=== PATIENT | female | born 1970 | race Caucasian/White ===

== ENCOUNTER 2020-06-21 09:58 | Outpatient (CLI) | payer BC, SELFPAY ==
--- NOTE | 2020-06-21 11:00 | NEURO_ITS ---
Patient Number: [id number] Impression: # Complains of left upper extremity pain particularly around shoulder. # No Carpal Tunnel Syndrome. # Left ulnar neuropathy across the elbow. # Normal needle/EMG exam including Bicep, Triceps and Deltoid muscles but ADM is neurogenic. # Patient has ulnar to median cross innervation above the wrist and below the elbow. Nerve Conduction Studies Anti Sensory Summary Table Stim Site NR Peak (ms) P-T Amp (?V) Site1 Site2 Delta-P (ms) Dist (cm) Gennaro (m/s) Left Median Anti Sensory (2-3nd Digit) Wrist 2.6 67.0 Wrist 2-3nd Digit 2.6 14.0 54 Wrist 2.6 83.4 Wrist 2-3nd Digit 2.6 14.0 54 Left Radial Anti Sensory (Base 1st Digit) Wrist 3.0 14.9 Wrist Base 1st Digit 3.0 0.0 Left Ulnar Anti Sensory (5th Digit) Wrist 2.3 88.2 Wrist 5th Digit 2.3 14.0 61 Motor Summary Table Stim Site NR Onset (ms) O-P Amp (mV) Site1 Site2 Delta-0 (ms) Dist (cm) Gennaro (m/s) Left Median Motor Run #1 (Abd Poll Brev) Wrist 3.1 4.7 Elbow Wrist 5.1 26.0 51 Elbow 8.2 0.1 Left Median Motor Run #2 (Abd Poll Brev) Wrist 3.0 1.3 Elbow Wrist 4.8 29.0 60 Elbow 7.8 1.2 Left Ulnar Motor (Abd Dig Minimi) Wrist 2.9 4.8 A Elbow Wrist 5.5 29.0 53 A Elbow 8.4 3.3 B Elbow Wrist 3.2 20.0 63 B Elbow 6.1 3.2 F Wave Studies NR F-Lat (ms) L-R F-Lat (ms) Left Median (Mrkrs) (Abd Poll Brev) 25.78 Left Ulnar (Mrkrs) (Abd Dig Min) 27.70 EMG Side Muscle Nerve Root Ins Act Fibs Amp Dur Recrt Comment Left 1stDorInt Ulnar C8-T1 Nml Nml Nml Nml Nml Left Ext Indicis Radial (Post Int) C7-8 Nml Nml Nml Nml Nml Left Ext Digitorum Radial (Post Int) C7-8 Nml Nml Nml Nml Nml Left BrachioRad Radial C5-6 Nml Nml Nml Nml Nml Left PronatorTeres Median C6-7 Nml Nml Nml Nml Nml Left Abd Poll Brev Median C8-T1 Nml Nml Nml Nml Nml Left ABD Dig Min Ulnar C8-T1 Nml Nml Incr >12ms Nml Left Biceps Musculocut C5-6 Nml Nml Nml Nml Nml Left Triceps Radial C6-7-8 Nml Nml Nml Nml Nml Left Deltoid Axillary C5-6 Nml Nml Nml Nml Nml MTDD
== END 2020-06-21 09:59 | disposition home or self-care (01) ==
PROVIDERS: PCP Family Medicine Adolescent Medicine; Visit Provider Physician Assistant
DX: R20.2 Paresthesia of skin (principal); G56.22 Lesion of ulnar nerve, left upper limb
CPT/HCPCS: 95886; 95909

== ENCOUNTER → 2020-07-22 10:54 | Outpatient (CLI) | payer BC, SELFPAY ==
--- NOTE | ~2020-07-22 | MR_ITS ---
EXAMINATION: MR cervical spine wo con EXAM DATE: 07/22/2020 11:27 INDICATION: Left neck, shoulder paresthesia. Numbness. TECHNIQUE: Multi-sequential, multiplanar MR images of the cervical spine were obtained without contra st. Axial T2, axial T2 MERGE sequence. Sagittal T1, T2, T2 fat saturation images also obtained. Th ere is no prior study for comparison. FINDINGS: Mildly increased spinal cord signal posterior to the C5-6 level, with mild flattening of t he cord, but no expansion. Appearance is most consistent with small amount of myelomalacia from chron ic cord compression. There is moderate disc disease C5-6, mild to moderate C4-5 and C6-7. Cervicomed ullary junction is normal in appearance. The vertebral bodies are aligned in the AP dimension. There are no suspicious marrow signal abnormalities. Paraspinal soft tissue is unremarkable. Left thyroid c ystic nodule. Level by level evaluation: C2-C3: Disc does not extend beyond the endplate margin. Uncovertebral joint arthropathy: None. Facet joint arthropathy: Mild bilateral. Neural foraminal stenosis: No stenosis. Central canal stenosis: No stenosis. C3-C4: Disc does not extend beyond the endplate margin. Uncovertebral joint arthropathy: None. Facet joint arthropathy: Mild bilateral. Neural foraminal stenosis: Mild bilateral. Central canal stenosis: No stenosis. C4-C5: Disc does not extend beyond the endplate margin. Uncovertebral joint arthropathy: Mild bilateral. Facet joint arthropathy: Mild bilateral. Neural foraminal stenosis: No stenosis. Central canal stenosis: No stenosis. C5-C6: There is a mild to moderate diffuse disc bulge. Uncovertebral joint arthropathy: Moderate to severe bilateral. Facet joint arthropathy: Mild to moderate bilateral. Neural foraminal stenosis: Moderate to severe bilateral. Central canal stenosis: Mild to moderate . Central canal measures 6 mm in mid sagittal AP diameter . C6-C7: There is a mild to moderate diffuse disc bulge. Uncovertebral joint arthropathy: Moderate bilateral. Facet joint arthropathy: Mild bilateral. Neural foraminal stenosis: Moderate to severe left. Mild to moderate right Central canal stenosis: Mild to moderate . Central canal measures 7 mm in mid sagittal AP diameter . C7-T1: Disc does not extend beyond the endplate margin. Uncovertebral joint arthropathy: Mild to moderate left. Facet joint arthropathy: Mild to moderate left, mild right. Neural foraminal stenosis: No stenosis. Central canal stenosis: No stenosis. IMPRESSION: 1. C5-6 mild to moderate central canal stenosis, some flattening of spinal cord and increased cord s ignal without expansion, appearance most consistent with chronic cord compression. 2. Significant neural foraminal stenosis bilaterally at C5-6 and on the left at C6-7. Reviewed, dictated and finalized at location B. IMPRESSION: 1. C5-6 mild to moderate central canal stenosis, some flattening of spinal cor d and increased cord signal without expansion, appearance most consistent with chronic cord compression. 2. Significant neural foraminal stenosis bilaterally at C5-6 and on the left a t C6-7.
== END ==
PROVIDERS: PCP Family Medicine Adolescent Medicine; Visit Provider Family Medicine Adolescent Medicine
DX: M62.81 Muscle weakness (generalized) (principal); R20.2 Paresthesia of skin
CPT/HCPCS: 72141

== ENCOUNTER → 2020-08-26 11:22 | Outpatient (CLI) | payer BC, SELFPAY ==
--- NOTE | ~2020-08-26 | MM_ITS ---
EXAMINATION: MM screening [facility] BI w laura HISTORY: Screening mammogram TECHNIQUE: Craniocaudal and mediolateral oblique 3-D tomosynthesis images were obtained and synthetic 2-D images were generated. CAD analysis was submitted and interpreted. COMPARISON: 08/12/2019, , 09/03/2016 bilateral digital screening mammogram examinations BREAST PARENCHYMAL COMPOSITION: There are scattered areas of fibroglandular density. FINDINGS: There is a subtle group of clustered microcalcifications in the outer mid right breast post eriorly. Diagnostic right mammogram and magnification views is recommended. Otherwise there is no evidence of suspicious mass, calcification, or architectural distortion to sugg est malignancy in either breast. There has been no suspicious interval change. IMPRESSION: 1. Clustered microcalcifications in posterior lateral mid right breast 2. Diagnostic right mammogram with magnification views is recommended. BI-RADS Category 0: Incomplete: Needs additional imaging evaluation. Reviewed, dictated and finalized at location A.
== END ==
PROVIDERS: Visit Provider Obstetrics & Gynecology Gynecology
DX: Z12.31 Encounter for screening mammogram for malignant neoplasm of breast (principal)
CPT/HCPCS: 77063; 77067

== ENCOUNTER → 2020-10-20 09:22 | Outpatient (CLI) | payer BC, SELFPAY ==
--- NOTE | ~2020-10-20 | MM_ITS ---
EXAMINATION: MM diagnostic mammo unilat RT HISTORY: Indeterminate right breast calcifications on screening mammogram TECHNIQUE: Additional images of the right breast were performed. CAD analysis was submitted and inter preted. COMPARISON: 08/26/2020,02/09/2019, 01/13/2018, 09/03/2016 FINDINGS: There are grouped calcifications in the posterior third of the upper outer quadrant of the breast at the 10:00 location 10 cm from the nipple which appear to be pleomorphic and amorphous in mo rphology. IMPRESSION: 1. Suspicious right breast calcifications. 2. Stereotactic biopsy is recommended. BI-RADS category 4, suspicious findings. Reviewed, dictated and finalized at location A. ODIAL OPERATIONS MANAGER
== END ==
PROVIDERS: Visit Provider Obstetrics & Gynecology Gynecology
DX: R92.8 Other abnormal and inconclusive findings on diagnostic imaging of breast (principal)
CPT/HCPCS: 77065

== ENCOUNTER 2020-10-24 15:07 | Outpatient (CLI) | payer BC, SELFPAY ==
--- NOTE | ~2020-10-24 | XR_ITS ---
EXAMINATION:XR_[id number]_CR DATE: 10/24/2020 15:34 INDICATION: Status post cervical spinal fusion TECHNIQUE: AP, lateral, lateral swimmers and odontoid views of the cervical spine are provided. COMPARISON: None FINDINGS: Anterior spinal fusion at C5-C7 with anterior plate and screw fixation. There is persistent lucency w ith bone graft cages at both of the disc spaces. Slight reversal of the normal cervical lordosis in t he cervical spine above the level of the fusion. Vertebral body heights are normal. Unfused disc heig hts are normal. Mild uncovertebral osteoarthritis bilaterally at C2-C3, C3-C4 and C4-C5. Moderate fac et osteoarthritis at C7-T1. Mild facet osteoarthritis in the more cephalad cervical spine. Odontoid i s intact. Normal atlantoaxial interval. Prevertebral soft tissues are normal. Visualized portions o f the upper lung zones are clear. IMPRESSION: 1. Mild cervical spondylosis with instrumented C5-C7 anterior spinal fusion. Reviewed, dictated and finalized at location . C LIBRARY ASSISTANT
== END 2020-10-24 15:08 | disposition home or self-care (01) ==
LOC: ANHIMG 15:16
PROVIDERS: PCP Family Medicine Adolescent Medicine; Visit Provider Neurological Surgery
DX: Z98.1 Arthrodesis status (principal); M47.813 Spondylosis without myelopathy or radiculopathy, cervicothoracic region
CPT/HCPCS: 72040

== ENCOUNTER 2020-11-01 11:11 | Outpatient (CLI) | payer BC, SELFPAY ==
--- NOTE | ~2020-11-01 | MM_ITS ---
EXAMINATION: MM stereotactic bx RT, MM post biopsy diagnostic RT, MM stereotactic specimen RT, Specim en Radiograph, Tissue Marker Clip Placement, Unilateral Mammogram DATE: 11/01/2020 13:14 (accession [id number]), 11/01/2020 13:16 (accession [id number]), 11/01 13:16 (accession [id number]) INDICATION: Abnormal mammogram: Suspicious right grouped microcalcifications in posterior third of up per outer right breast at 10:00 10 cm from nipple, reported on 10/20/2020 diagnostic right digital ma mmogram. TECHNIQUE AND FINDINGS: The risks and potential benefits of the procedure and alternatives were discussed with the patient an d written informed consent was obtained. Timeout procedure was performed. The patient was placed in t he prone position on the dedicated stereotactic table with the right breast in lateral medial dominga malinda, and the area of interest was localized and targeted utilizing digital imaging with stereotaxis. After sterile preparation of the skin, 1% lidocaine was utilized for local anesthesia at the skin pun cture site and 1% lidocaine with epinephrine was utilized for deeper local anesthesia/is about the bi opsy site. A 9G eCoast vacuum assisted biopsy needle was advanced to the level of the calcification o f interest from a lateral approach utilizing stereotactic guidance and a total of 30 tissue core biop sies were obtained from 3 different collections, including 2 additional collections of tissue after t he initial sampling. Multiple specimen radiographs from three separate biopsy samplings demonstrate that at least one of t he calcifications of interest is included within the tissue cores. A tissue marker clip was then madi claudia at the biopsy site. A digital mammographic exposure confirmed the successful deployment of the b iopsy marker. No microcalcifications of interest are definitely identified within the postbiopsy diag nostic mammogram. However, there is some increased density consistent with post biopsy hematoma which might obscure subtle microcalcifications. 6 month diagnostic right mammogram follow-up is therefore recommended. The needle was removed and hemostasis was achieved. A sterile bandage was applied. The patient tole rated the procedure well and there is no evidence of significant immediate complication, other than s ome bleeding . The patient was given verbal as well as written postprocedural instructions prior to discharge from the department. Tissue cores were submitted to surgical pathology for histologic anal ysis. A 2-view right unilateral digital mammogram was obtained post procedure, demonstrating the tissue mar ker clip in expected position. IMPRESSION: 1. Stereotactic biopsy of upper outer quadrant, followed by tissue marker clip placement. Please re danielle to pathology report for histologic analysis. 2. The biopsy yielded only one definitive calcification in the specimens, but no definite residual mi crocalcifications are evident on the post biopsy mammogram. Follow-up diagnostic right mammogram is r ecommended in 6 months. RECOMMENDATION: 6 month diagnostic right mammogram follow up Dr. Coelho telephoned the results and the 6 month diagnostic right mammogram follow up recommendation t o Dr. Marrufo on 11/01/2020 at 1538 hours. Reviewed, dictated and finalized at Location A. Reviewed, dictated and finalized at location A. MACHINE OPERATOR IMPRESSION: 1. Stereotactic biopsy of upper outer quadrant, followed by tissue marker clip placement. Please refer to pathology report for histologic analysis. 2. The biopsy yielded only one definitive calcification in the specimens, but n o definite residual microcalcifications are evident on the post biopsy mammogra m. Follow-up diagnostic right mammogram
== END 2020-11-01 11:12 | disposition home or self-care (01) ==
PROVIDERS: PCP Family Medicine Adolescent Medicine; Visit Provider Surgery
DX: N60.11 Diffuse cystic mastopathy of right breast (principal)
CPT/HCPCS: 19081; 77065; 88305; A4648

== ENCOUNTER → 2021-03-23 06:52 | Outpatient (CLI) | payer BC, SELFPAY ==
[2021-03-24 21:01] LABS: SARS-CoV-2 RNA PCR Positive
== END ==
PROVIDERS: PCP Family Medicine Adolescent Medicine; Visit Provider Family Medicine Adolescent Medicine
DX: U07.1 COVID-19 (principal)
CPT/HCPCS: C9803; U0003; U0005

== ENCOUNTER → 2021-07-17 08:57 | Outpatient (CLI) | payer BC, SELFPAY ==
--- NOTE | ~2021-07-17 | MM_ITS ---
EXAMINATION: MM diagnostic stacy RT w laura HISTORY: Six-month follow-up from benign right breast biopsy TECHNIQUE: Craniocaudal, mediolateral, and mediolateral oblique 3-D tomosynthesis images of the right breast were performed and synthetic 2-D images were generated. CAD analysis was submitted and interp reted. COMPARISON: 10/20/2020,08/26/2020, 02/09/2019 BREAST PARENCHYMAL COMPOSITION: There are scattered areas of fibroglandular density. FINDINGS: There are changes of interval stereotactic biopsy in the right breast. There is no evidence of suspicious mass, calcification, or architectural distortion to suggest malignancy. Stable right breast masses are considered benign given the lack of interval change. IMPRESSION: 1. No mammographic evidence of malignancy. 2. Recommend routine screening mammography. Of note, patient is due for screening of the left breast next month. BI-RADS Category 2: Benign finding(s). Reviewed, dictated and finalized at location A. IMPRESSION: 1. No mammographic evidence of malignancy. 2. Recommend routine screening mammography. Of note, patient is due for screeni ng of the left breast next month. BI-RADS Category 2: Benign finding(s).
== END ==
PROVIDERS: Visit Provider Obstetrics & Gynecology
DX: R92.8 Other abnormal and inconclusive findings on diagnostic imaging of breast (principal)
CPT/HCPCS: 77061; 77065; G0279

== ENCOUNTER → 2022-01-09 13:24 | Outpatient (CLI) | payer BC, SELFPAY ==
--- NOTE | ~2022-01-09 | MM_ITS ---
EXAMINATION: MM screening [facility] BI w laura HISTORY: Screening TECHNIQUE: Craniocaudal and mediolateral oblique 3-D tomosynthesis images were obtained and synthetic 2-D images were generated. CAD analysis was submitted and interpreted. COMPARISON: Comparison to multiple prior studies sequentially, with oldest reviewed study dated 08/26. BREAST PARENCHYMAL COMPOSITION: There are scattered areas of fibroglandular density. FINDINGS: There is no evidence of suspicious mass, calcification, or architectural distortion to sugg est malignancy in either breast. There has been no suspicious interval change. IMPRESSION: 1. No mammographic evidence of malignancy. 2. Recommend routine screening mammography in one year. BI-RADS Category 1: Negative .. Reviewed, dictated and finalized at location A. HING OPERATOR
== END ==
PROVIDERS: Visit Provider Nurse Practitioner
DX: Z12.31 Encounter for screening mammogram for malignant neoplasm of breast (principal)
CPT/HCPCS: 77063; 77067

== ENCOUNTER → 2023-01-31 15:14 | Outpatient (CLI) | payer BC, SELFPAY ==
--- NOTE | ~2023-01-31 | MM_ITS ---
EXAMINATION: MM screening [facility] BI w laura HISTORY: Screening mammogram TECHNIQUE: Craniocaudal and mediolateral oblique 3-D tomosynthesis images were obtained and synthetic 2-D images were generated. CAD analysis was submitted and interpreted. COMPARISON: January 2022, July 17, 2021, October 20, 2020 bilateral screening mammogram examinati ons BREAST PARENCHYMAL COMPOSITION: There are scattered areas of fibroglandular density. FINDINGS: Right breast: There is no evidence of suspicious mass, calcification, or architectural distortion to suggest malignancy in the right breast. There has been no suspicious interval change. Left breast: Focal asymmetry is noted in the mid to posterior aspect of the inner aspect of the outer left breast on craniocaudal view. Diagnostic left mammogram is recommended, with ultrasound if requi red. IMPRESSION: 1. Left mammographic asymmetry 2. Diagnostic left mammogram is recommended, with ultrasound if required BI-RADS Category 0: Incomplete: Needs additional imaging evaluation. Reviewed, dictated and finalized at location A. AND SEAT COVER FITTER
== END ==
PROVIDERS: PCP Advanced Practice Midwife; Visit Provider Advanced Practice Midwife
DX: Z12.31 Encounter for screening mammogram for malignant neoplasm of breast (principal); R92.8 Other abnormal and inconclusive findings on diagnostic imaging of breast
CPT/HCPCS: 77063; 77067

== ENCOUNTER → 2023-04-12 14:00 | Outpatient (CLI) | payer BC, SELFPAY ==
--- NOTE | ~2023-04-12 | MM_ITS ---
EXAMINATION: MM diagnostic stacy LT w laura HISTORY: Left breast asymmetry on screening mammogram TECHNIQUE: Additional 3-D tomosynthesis images of the left breast were performed and synthetic 2-D im ages were generated. CAD analysis was submitted and interpreted. COMPARISON: 01/31/2023,01/09/2022, 08/26/2020 BREAST PARENCHYMAL COMPOSITION: There are scattered areas of fibroglandular density. FINDINGS: There is a return to baseline fibroglandular appearance with spot compression of the left b reast in the area questioned on screening mammogram. IMPRESSION: 1. No mammographic evidence of malignancy. 2. Recommend routine screening mammography in one year. BI-RADS Category 1: Negative Reviewed, dictated and finalized at location A.
== END ==
PROVIDERS: PCP Obstetrics & Gynecology Gynecology; Visit Provider Obstetrics & Gynecology Gynecology
DX: R92.8 Other abnormal and inconclusive findings on diagnostic imaging of breast (principal)
CPT/HCPCS: 77061; 77065; G0279

== ENCOUNTER 2024-05-21 13:52 | Outpatient (CLI) | payer BC, SELFPAY ==
--- NOTE | ~2024-05-21 | MM_ITS ---
EXAMINATION: MM screening [facility] BI w laura HISTORY: Screening TECHNIQUE: Craniocaudal and mediolateral oblique 3-D tomosynthesis images were obtained and synthetic 2-D images were generated. CAD analysis was submitted and interpreted. COMPARISON: Comparison to multiple prior studies sequentially, with oldest reviewed study dated 12/2019. BREAST PARENCHYMAL COMPOSITION: Not dense: There are scattered areas of fibroglandular density. FINDINGS: There is no evidence of suspicious mass, calcification, or architectural distortion to sugg est malignancy in either breast. There has been no suspicious interval change. IMPRESSION: 1. No mammographic evidence of malignancy. 2. Recommend routine screening mammography in one year. BI-RADS Category 1: Negative Reviewed, dictated and finalized at location B.
== END 2024-05-21 13:53 ==
PROVIDERS: PCP Family Medicine Adolescent Medicine; Visit Provider Obstetrics & Gynecology Gynecology
DX: Z12.31 Encounter for screening mammogram for malignant neoplasm of breast (principal)
CPT/HCPCS: 77063; 77067

== ENCOUNTER 2025-08-06 12:47 | Outpatient (CLI) | payer BC, SELFPAY ==
--- NOTE | ~2025-08-06 | MM_ITS ---
EXAMINATION: MM screening [facility] BI w laura HISTORY: Screening TECHNIQUE: Craniocaudal and mediolateral oblique 3-D tomosynthesis images were obtained and synthetic 2-D images were generated. CAD analysis was submitted and interpreted. COMPARISON: Mammograms from 05/21/2024 and 01/31/2023 BREAST PARENCHYMAL COMPOSITION: There are scattered areas of fibroglandular density. FINDINGS: There is no evidence of suspicious mass, calcification, or architectural distortion to suggest malignancy. There has been no suspicious interval change. IMPRESSION: 1. No mammographic evidence of malignancy. Recommend routine screening mammography in one year. BI-RADS Category 2: Benign finding(s) Reviewed, dictated and finalized at location Q. IMPRESSION: 1. No mammographic evidence of malignancy. Recommend routine screening mammogra phy in one year. BI-RADS Category 2: Benign finding(s)
== END 2025-08-06 12:48 | disposition home or self-care (01) ==
PROVIDERS: PCP Family Medicine Adolescent Medicine; Visit Provider Obstetrics & Gynecology Gynecology
DX: Z12.31 Encounter for screening mammogram for malignant neoplasm of breast (principal)
CPT/HCPCS: 77063; 77067